=== PATIENT | male | born 1975 | race African-American/Black ===

== ENCOUNTER 2019-09-16 17:52 | Emergency (ER) | payer OTHER ==
[~2019-09-16] VITALS: Ht 177.8 cm; Wt 90.7 kg
--- NOTE | 2019-09-16 18:02 | NUR ---
PT BIBRA FROM WORKPLACE TO ED BED REPORT, WITNESSED SEIZURE AT WORK. 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 NO HEAD TRAUMA. NO ORAL TRAUMA. AWATING MD LERNER.
--- NOTE | 2019-09-16 18:47 | NUR ---
DR BELTRAN AT BEDSIDE FOR EVAL.
--- NOTE | 2019-09-16 18:51 | NUR ---
LASTING MACHINE OPERATOR HAND METHOD AT BEDSIDE FOR BLOOD DRAW.
[2019-09-16] MEDS ORDERED: IV NS 0.9% 1,000 ML BAG IV ONE (19:00)
--- NOTE | 2019-09-16 19:22 | NUR ---
REPORT GIVEN TO SUBJECT SCIENTIFIC RESEARCH NURSE CAROLINE FOR [facility]UMIKO.
--- NOTE | 2019-09-16 19:25 | NUR ---
IV removed. Catheter intact and site benign. Pressure and 4x4 applied to site. No bleeding noted.
--- NOTE | 2019-09-16 19:26 | NUR ---
Patient discharged to home in stable condition. Written and verbal after care instructions given. Patient verbalizes understanding of instruction. Pt ambulated with steady gait. VSS. No acute distress noted.
[2019-09-16 19:27] VITALS: BP 128/74
== END 2019-09-16 19:30 | disposition home or self-care (01) ==
LOC: ER 17:55
DX: G40.909 Epilepsy, unspecified, not intractable, without status epilepticus (principal); F17.210 Nicotine dependence, cigarettes, uncomplicated